=== PATIENT | male | born 1965 | race Hispanic/Latino ===

== ENCOUNTER 2020-05-18 16:02 | Inpatient (IN) | payer OTHER ==
[~2020-05-18] VITALS: Ht 175.3 cm; Wt 108.9 kg
[~2020-05-18 16:02] MED LIST: ZYRTEC10 M3 PO
[2020-05-18] MEDS ORDERED: MORPHINE SULFATE INJ 4 MG/ML INJ 1ML IV PRN (17:15)
[2020-05-18] MEDS ORDERED: CEFTRIAXONE SOD 1 GM/NS 50 ML 50 ML IV SCH (17:15)
[2020-05-18 17:50] LABS: BASOPHILS % 0.3 % (0.0-1.0); EOSINOPHILS # (AUTO) 0.4 (0.0-0.4); EOSINOPHILS % 4.3 % (0.0-6.0); HEMATOCRIT 36.9 % (38.2-49.6); LYMPHOCYTES # (AUTO) 1.2 (1.0-3.2); LYMPHOCYTES % 11.4 % (18.0-39.1); MEAN CORPUSCULAR HEMOGLOBIN 30.6 pg (28-32); MEAN CORPUSCULAR HGB CONC 32.5 g/dL (31-35); MEAN CORPUSCULAR VOLUME 94.1 fL (81-99); MONOCYTES % 9.6 % (4.4-11.3); NEUTROPHILS # (AUTO) 7.7 (2.1-6.9); NEUTROPHILS % 74.1 % (38.7-80.0); PLATELET COUNT 268 x10e3/uL (140-360); RED BLOOD COUNT 3.92 x10e6/uL (4.3-5.7)
[2020-05-18 18:08] LABS: ALANINE AMINOTRANSFERASE 28 IU/L (0-55); ALBUMIN/GLOBULIN RATIO 1.1 (0.8-2.0); ALKALINE PHOSPHATASE 42 IU/L (40-150); ANION GAP 16.6 mmol/L (8-16); BLOOD UREA NITROGEN 19 mg/dL (7-26); BUN/CREATININE RATIO 20 (6-25); CALCIUM 8.5 mg/dL (8.4-10.2); CARBON DIOXIDE 24 mmol/L (22-29); CHLORIDE 105 mmol/L (98-107); CREATININE, SERUM 0.96 mg/dL (0.72-1.25); EST GLOMERULAR FILTRATION RATE > 60 ML/MIN (60-); GLUCOSE 88 mg/dL (74-118); POTASSIUM 3.6 mmol/L (3.5-5.1); SODIUM 142 mmol/L (136-145)
[2020-05-18] MEDS: VANCOMYCIN 1GM/NS 250 ML 250 ML IV SCH (18:13)
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
--- OUTSIDE RECORDS SUMMARY | 2020-05-18 18:44 | XMS REPORT | Continuity of Care Document ---
Author Author [employer] RADHA Organization [facility] Address Unknown Phone Unavailable Care Team Providers Care Agile Scrum Coach Name Role Phone [employer] Information [employer] Unavailable Un available Problems Problem Status Onset Date Classification Date Reported Comments Source M25.561 - PAIN IN RIGHT KNEE A ctive 08/07/2016 [facility] Hypertension Active 09/21/2013 [facility] Medications Medication Details Route Status Patient Instructions Ordering Provider Order Date Source Metoprolol Succinate ER 25 MG Oral Table t Extended Release 24 Hour ; Start Date: 09/16/2013; End Date: 07/1899 (Active) Active 09/16/2013 [facility] Metoprolol Succinate ER 25 MG Oral Table t Extended Release 24 Hour (Active) A ctive [facility] Osteo Bi-Flex Regular Strength TABS (Active) Active [facility] Multi-Vitamins TABS (Active) Active [facility] Allergies, Adverse Reactions, Alerts Substance Category Reaction Severity Reaction type Status Date Reported Comments Source No Known Drug Allergies drug a llergy drug aller gy Active [facility] Immunizations No Data Provided for This Section Results No Data Provided for This Section Pathology Reports No Data Provided for This Section Diagnostic Reports Report Value Date Source Knee 4+ views bilat DX EXAM: X R RIGHT KNEE 4 VIEWS DATE: 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 Tricompartmental osteophytes are present, with severe lateral compartment joint space narrowing, early subchondral sclerosis, and resultant mild valgus deformity. AP views including the bilateral knees demonstrate minimal osteophytes on the left. There is no knee joint effusion. No soft tissue abnormality is identified. IMPRESSION: Moderate osteoarthrosis of the right knee, most evident in the lateral compartment. 08/07/2016 [employer] Chest 2 views Chest x-ray 2 vi ews INDICATION: Preoperative exam COMPARISON: None FINDINGS: Heart size and central vasculature are within normal limits. The thoracic aorta is tortuous. There is no effusion or focal pneumonia. No pneumothorax. No acute osseous pathology. IMPRESSION: No acute cardiopulmonary process. 09/16/2013 [facility] [place] Consultation Notes No Data Provided for This Section Discharge Summaries No Data Provided for This Section History and Physicals No Data Provided for This Section Vital Signs No Data Provided for This Section Encounters Location Location Details Encounter Type Encounter Number Reason For Visit Attending Provider ADM Date DC Date Status Source AUDIT [id number] 07/05/2012 07/05/2012 [facility] Jennifer ROCK humza: LANCE GUSTAFSON, Status: Pen, Time: 3:30 PM [id number] 12/17/19 13 07/05/2012 [facility] AUDIT [id number] 09/16/2013 09/16/2013 [facility] AUDIT [id number] 09/16/2013 09/16/2013 [facility] [place] [facility] [id number] _MAPID:[id number] Elizabeth Pederson 09/16/2013 09/17/2013 [facility] [place] AUDIT [id number] 09/18/2013 09/19/2013 [facility] AUDIT [id number] 09/21/2013 09/21/2013 [facility] [place] [facility] [id number] 01 Mauri Moore 08/07/2016 08/08/2016 [facility] [place] Procedures No Data Provided for This Section Assessment and Plan No Data Provided for This Section Plan of Care Plan of Care Date Source [QLH] CBC (INCLUDES DIFF/PLT) 09/16/2013 Routine[QLH] CMP W/EGFR 09/16/2013 Routine[QLH] PARTIAL THROMBOPLASTIN TIME, ACTIVATED 09/16/2013 Routine[QLH] PROTHROMBIN TIME-INR 09/16/2013 Routine[QLH] URINALYSIS, COMPLETE 09/16/2013 RoutineXRAY Chest 2 views [id number] 09/16/2013 Routine 09/16/2013 [facility] [QLH] CBC (INCLUDES DIFF/PLT) 09/16/2013 Routine[QLH] CMP W/EGFR 09/16/2013 Routine[QLH] PARTIAL THROMBOPLASTIN TIME, ACTIVATED 09/16/2013 Routine[QLH] PROTHROMBIN TIME-INR 09/16/2013 Routine[QLH] URINALYSIS, COMPLETE 09/16/2013 RoutineXRAY Chest 2 views [id number] 09/16/2013 Routine 09/16/2013 [facility] Social History Social History Date Source No data available for this section 08/08/2016 [facility] [place] Current Some Day Smoker (305.1); (Active) Being A Social Drinker (Active) No History of Drug Use (Denied) 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) Marital History - Single (Active) 09/21/2013 [facility] Family History Value Date S ource Family history of Denial Of Any Signific ant Medical History (Active) 09/21/2013 [facility] Family history of Denial Of Any Signific ant Medical History (Active) 09/19/2013 [facility] Family history of Denial Of Any Signific ant Medical History (Active) 09/16/2013 [facility] Family history of Denial Of Any Signific ant Medical History (Active) 09/16/2013 [facility] Advance Directives Order Name Results Value Date Source Advance Directives Advance Dir ectives No Advance Directives available. 09/21/2013 [facility] Advance Directives Advance Dir ectives No Advance Directives available. 09/19/2013 [facility] Advance Directives Advance Dir ectives No Advance Directives available. 09/16/2013 [facility] Advance Directives Advance Dir ectives No Advance Directives available. 09/16/2013 [facility] Advance Directives Advance Dir ectives No Advance Directives available. 07/05/2012 [facility] Functional Status No Data Provided for This Section
--- OUTSIDE RECORDS SUMMARY | 2020-05-18 18:44 | XMS REPORT | Continuity of Care Document ---
Author Author [facility] t Organization [facility] Address [facility] [place] [address] Phone Unavailable Care Team Providers Care Telephone Messenger Name Role Phone Andrew Moore Mauri Attphys Ernestina Pederson Attphys Payers Payer Name Policy Type Policy Number Effective Date Expiration Date S ource Problems Condition Name Condition Details Condition Category Status Onset Date Resolution Date Last Treatment Date Treating Clinician Comments Source M25.561 - PAIN IN RIGHT KNEE M 25.561 - PAIN IN RIGHT KNEE Active 08/07/2016 Kvng Wilde Diagnosis Active 2016-08-07 00:0 1:00 2016-09-01 12:29:00 Kvng Wilde Hypertension Hype rtension Active 09/21/2013 [facility] Problem Active 2013-09-21 21:49:39 Doe Wilde Allergies, Adverse Reactions, Alerts Allergy Name Allergy Type Status Severity Reaction(s) Onset Date Inacti ve Date Treating Clinician Comments Source No Known Allergies DA Active U 2017-11-01 00:00:00 [facility] No Known Drug Allergies No Known Drug Allergies Active Kvng Wilde Family History Family Member Diagnosis Comments Start Date Stop Date Source Unknown Family Member Family History 2013-09-16 16:36:24 2 16:36:24 Kvng Wilde Social History Social Habit Start Date Stop Date Quantity Comments Source Social History 2013-09-21 21:49:39 2013-09-21 21:49:39 Kvng Wilde Medications Ordered Medication Name Filled Medication Name Start Date Stop Da te Current Medication? Ordering Clinician Indication Dosage Frequency Signature (SIG) Comments Components Source Osteo Bi-Flex Regular Strength TABS 2013-09-21 21:49:39 Yes (Active) Kvng Wilde Multi-Vitamins TABS 2013-09-21 21:49:39 Yes (Active) Kvng Wilde Metoprolol Succinate ER 25 MG Oral Tablet Extended Release 2 4 Hour 2013-09-16 06:00:00 Yes ; Start Date: ; End Date: (Active) Kvng Wilde Metoprolol Succinate ER 25 MG Oral Tablet Extended Release 2 4 Hour 2012-07-05 13:52:22 Yes (Active) Tejinder Wilde Procedures This patient has no known procedures. Plan of Care Planned Activity Planned Date Details Comments Source Future Scheduled Test 2013-09-16 20:44:09 Plan of Care [code = 1877 6-5] Kvng Wilde Future Scheduled Test 2013-09-16 16:36:24 Plan of Care [code = 1877 6-5] Kvng Wilde Encounters Start Date/Time End Date/Time Encounter Type Admission Type [facility] Care Department Encounter ID Source 2016-08-07 15:26:00 2016-08-07 23:59:00 Outpatient Jeremiah Moore MHOIB MHOIB [id number] 2013-09-21 16:49:39 2013-09-21 16:49:39 Outpatient MHIE MHIE [id number] 2013-09-18 22:01:02 2013-09-18 22:01:01 Outpatient MHIE MHIE [id number] 2013-09-16 11:34:00 2013-09-16 23:59:00 Outpatient Elizabeth PedersonIE GIORGIOIE [id number] 2013-09-16 14:44:10 2013-09-16 14:44:09 Outpatient MHIE MHIE [id number] 2013-09-16 10:36:24 2013-09-16 10:36:24 Outpatient MHIE MHIE [id number] 2012-07-05 07:52:38 2012-07-05 07:52:22 Outpatient MHIE MHIE [id number] Results This patient has no known results.
[2020-05-18 22:30] VITALS: BP 128/68
[2020-05-18 22:31] VITALS: BP 152/73
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
--- OUTSIDE RECORDS SUMMARY | 2020-05-18 22:33 | XMS REPORT | Continuity of Care Document ---
Author Author [facility] t Organization [facility] Address [facility] [address] [place] [address] Phone Unavailable Care Team Providers Care Wire Drawer Name Role Phone Andrew Moore Mauri Attphys [...] Kvng Wilde Hypertension Hype rtension Active 09/21/2013 [facility] Problem Active 2013-09-21 21:49:39 Doe Wilde Allergies, Adverse Reactions, Alerts Allergy Name Allergy Type Status Severity Reaction(s) Onset Date Inacti ve Date Treating Clinician Comments Source No Known Allergies DA Active U 2017-11-01 00:00:00 [facility] No Known Drug Allergies No Known Drug [...] Date/Time End Date/Time Encounter Type Admission Type [facility] Care Department Encounter ID Source 2016-08-07 15:26:00 2016-08-07 23:59:00 Outpatient Jeremiah Moore MHOIB MHOIB [id number] 2013-09-21 16:49:39 2013-09-21 16:49:39 Outpatient MHIE MHIE [id number] 2013-09-18 22:01:02 2013-09-18 22:01:01 Outpatient MHIE MHIE [id number] 2013-09-16 11:34:00 2013-09-16 23:59:00 Outpatient Elizabeth PedersonIE GIORGIOIE [id number] 2013-09-16 14:44:10 2013-09-16 14:44:09 Outpatient MHIE MHIE [id number] 2013-09-16 10:36:24 2013-09-16 10:36:24 Outpatient MHIE MHIE [id number] 2012-07-05 07:52:38 2012-07-05 07:52:22 Outpatient MHIE MHIE [id number] Results This patient has no known results.
[2020-05-18] MEDS: CEFEPIME 1GM/NS 0.9% 50 ML 50 ML IV SCH (22:50)
[2020-05-18] MEDS ORDERED: SODIUM CHLORIDE 0.9% 250ML 250 ML ONE (23:01)
[2020-05-19] VITALS (8 sets, daily range): BP systolic 118–155; BP diastolic 68–85
[2020-05-19] MEDS: VANCOMYCIN 1GM/NS 250 ML 250 ML IV SCH ×2 (05:22→16:55)
--- NOTE | 2020-05-19 05:22 | NUR ---
NOTIFIED DR PIERSON THAT PATIENT GOT TO THE FLOOD. NEW ORDER RECEIVED.
[2020-05-19] MEDS: LORATADINE 10 MG TAB PO SCH (09:26)
[2020-05-19] MEDS: LOSARTAN POTASSIUM 100 MG TAB PO SCH ×2 (09:26→16:55)
[2020-05-19] MEDS: CEFEPIME 1GM/NS 0.9% 50 ML 50 ML IV SCH ×2 (11:00→23:28)
[2020-05-20] VITALS (8 sets, daily range): BP systolic 126–145; BP diastolic 54–77
[2020-05-20 06:40] LABS: BASOPHILS # (AUTO) 0.1 (0.0-0.1); BASOPHILS % 0.5 % (0.0-1.0); EOSINOPHILS # (AUTO) 0.6 (0.0-0.4); EOSINOPHILS % 5.7 % (0.0-6.0); HEMATOCRIT 36.8 % (38.2-49.6); HEMOGLOBIN 11.9 g/dL (14.0-18.0); LYMPHOCYTES % 10.3 % (18.0-39.1); MEAN CORPUSCULAR HEMOGLOBIN 30.3 pg (28-32); MEAN CORPUSCULAR HGB CONC 32.3 g/dL (31-35); MEAN CORPUSCULAR VOLUME 93.6 fL (81-99); MONOCYTES # (AUTO) 0.8 (0.2-0.8); MONOCYTES % 8.4 % (4.4-11.3); NEUTROPHILS # (AUTO) 7.5 (2.1-6.9); NEUTROPHILS % 74.8 % (38.7-80.0); PLATELET COUNT 273 x10e3/uL (140-360); RED BLOOD COUNT 3.93 x10e6/uL (4.3-5.7); RED CELL DISTRIBUTION WIDTH 12.7 % (11.7-14.4)
[2020-05-20 07:06] LABS: ALANINE AMINOTRANSFERASE 25 IU/L (0-55); ALBUMIN 3.4 g/dL (3.5-5.0); ALKALINE PHOSPHATASE 43 IU/L (40-150); ANION GAP 12.8 mmol/L (8-16); BLOOD UREA NITROGEN 13 mg/dL (7-26); BUN/CREATININE RATIO 17 (6-25); CALCIUM 8.9 mg/dL (8.4-10.2); CARBON DIOXIDE 25 mmol/L (22-29); CHLORIDE 106 mmol/L (98-107); CREATININE, SERUM 0.76 mg/dL (0.72-1.25); EST GLOMERULAR FILTRATION RATE > 60 ML/MIN (60-); GLUCOSE 106 mg/dL (74-118); POTASSIUM 3.8 mmol/L (3.5-5.1); SODIUM 140 mmol/L (136-145)
[2020-05-20] MEDS: VANCOMYCIN 1GM/NS 250 ML 250 ML IV SCH ×2 (07:40→17:37)
[2020-05-20] MEDS: LORATADINE 10 MG TAB PO SCH (09:32)
[2020-05-20] MEDS: LOSARTAN POTASSIUM 100 MG TAB PO SCH ×2 (09:33→17:37)
[2020-05-20] MEDS: CEFEPIME 1GM/NS 0.9% 50 ML 50 ML IV SCH ×2 (10:45→21:51)
[2020-05-21 04:00] VITALS: BP 149/93
[2020-05-21] MEDS: VANCOMYCIN 1GM/NS 250 ML 250 ML IV SCH (05:46)
--- NOTE | 2020-05-21 07:10 | NUR ---
RCD PT AT BED PT IS ALERT AND ORIENTED IV PATENT BED LOW AND LOCKED CALL LIGHT IN REACH
[2020-05-21 07:37] VITALS: BP 131/90
[2020-05-21 07:52] VITALS: BP 131/90
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
[2020-05-21] MEDS: LOSARTAN POTASSIUM 100 MG TAB PO SCH (09:00)
[2020-05-21] MEDS: LORATADINE 10 MG TAB PO SCH (09:00)
--- NOTE | 2020-05-21 09:35 | NUR ---
PAGED DR PIERSON AND NOTIFIED THE CRITICAL MRSA POSITIVE IN WOUND CULTURE PT ALREADY IN VANCOMYCIN
[2020-05-21] MEDS: CEFEPIME 1GM/NS 0.9% 50 ML 50 ML IV SCH (10:45)
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
[2020-05-21 11:32] VITALS: BP 141/86
--- NOTE | 2020-05-21 11:39 | NUR ---
PT WENT HOME IN SAFE CONDITION WITH HIS
[2020-05-21] MEDS ORDERED: ENOXAPARIN 30 MG/0.3 ML SYR SC SCH (17:00)
[2020-05-21] MEDS ORDERED: ENOXAPARIN SOD INJ 40 MG/0.4 ML SYR SC SCH (17:00)
== END 2020-05-21 11:59 | disposition home or self-care (01) | DRG 603 ==
LOC: ER 18:08 → MED/SURG2 18:09
PROVIDERS: ADMIT Family Medicine; ATTEND Family Medicine
DX: L03.116 Cellulitis of left lower limb (principal); I10 Essential (primary) hypertension; D64.9 Anemia, unspecified; E66.9 Obesity, unspecified; T78.40XA Allergy, unspecified, initial encounter; Z68.35 Body mass index [BMI] 35.0-35.9, adult; Z82.49 Family history of ischemic heart disease and other diseases of the circulatory system; Z93.3 Colostomy status; Z96.642 Presence of left artificial hip joint; Z20.828 Contact with and (suspected) exposure to other viral communicable diseases; B95.62 Methicillin resistant Staphylococcus aureus infection as the cause of diseases classified elsewhere
CPT/HCPCS: 36415; 80053; 80202; 83036; 85025; 87040; 87071; 87186; 87205; 93971; 99251; 99284; J0692; J0696; J2270; J3370; J7050